=== PATIENT | male | born 2005 | race Caucasian/White ===

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

== ENCOUNTER 2025-02-12 21:17 | Emergency (ER) | payer OTHER, SELFPAY ==
--- NOTE | ~2025-02-12 | XR_ITS ---
EXAM: XR hand LT 2V DATE: 02/12/2025 21:49 HISTORY: laceration TO 2ND DIGIT . COMPARISON: 06/19/2021. FINDINGS: Normal mineralization. No fracture or dislocation. No lytic or blastic lesion. Joint space s are maintained. No erosion or periosteal change. Soft tissue irregularity/laceration of the tip of the left second digit. IMPRESSION: No acute osseous finding in the left hand. Reviewed, dictated and finalized at location K.
--- OUTSIDE RECORDS SUMMARY | 2025-02-12 21:21 | XMS_ITS | Data Portability ---
Author Organization [facility] Address [address] [place] [address] Assessment No assessment recorded. Plan of Treatment Reminders Order Date Submit Date Provider Last Modified By Organization Details Last Modified Time Details Appointments None record ed. Lab None record ed. Referral None record ed. Procedures None record ed. Surgeries None record ed. Imaging None record ed. Medication Orders None record ed. Patient TargetsNo targets recorded. Patient InstructionsNo instructions recorded. Reason for Referral None Reported. Problems No Known Problems Medical Equipment None Reported. Allergies No known drug allergies Medications Name Sig Start Date Stop Date Status Note LastModified by Organization Details LastModified Time methylpheni date 10 mg tablet TAKE 1 TABLET BY MOUTH EVERY MORNING active Not Available Not Available No t Available methylpheni date ER 54 mg tablet,exte nded release 24 hr TAKE 1 TABLET BY MOUTH EVERY MORNING active Not Available Not Available No t Available cephalexin 500 mg capsule 04/11 completed Not Available Not Available Not Available methylpredn isolone 4 mg tablets in a dose pack TAKE 6 TABLETS ON DAY 1 DIRECTED ON PACKAGE AND DECREASE BY 1 TAB EACH DAY FOR A TOTAL OF 6 DAYS 12/13 completed Not Available Not Available Not Available Vitals Date Recorded Body weight Body mass index (BMI) Body height Oxygen saturation Oxygen saturation in Arterial blood by Pulse oximetry Heart rate Systolic blood pressure Diastolic blood pressure Provider Name and Address Organization Details Last Updated DateTime 8 35745.9 4 g 20 kg/m2 160.02 cm 98 % 98 % 90 /min 110 mm[Hg] 64 mm[Hg] Claire Kidd CMA [facility] 8 12:31:56 Date Recorded Body weight Body mass index (BMI) Body height Heart rate Oxygen saturation Oxygen saturation in Arterial blood by Pulse oximetry Systolic blood pressure Diastolic blood pressure Provider Name and Address Organization Details Last Updated DateTime 8 00292.9 8 g 19.1 kg/m2 160.02 cm 101 /min 99 % 99 % 104 mm[Hg] 70 mm[Hg] Arely Duque LPN [facility] 8 16:02:07 Date Recorded Body height Body mass index (BMI) Body weight Heart rate Oxygen saturation Oxygen saturation in Arterial blood by Pulse oximetry Systolic blood pressure Diastolic blood pressure Provider Name and Address Organization Details Last Updated DateTime 8 162.56 cm 18.8 kg/m2 76872.7 2 g 86 /min 98 % 98 % 112 mm[Hg] 70 mm[Hg] Arely Duque LPN [facility] 8 15:34:43 Date Recorded Body height Body mass index (BMI) Body weight Heart rate Oxygen saturation Oxygen saturation in Arterial blood by Pulse oximetry Systolic blood pressure Diastolic blood pressure Provider Name and Address Organization Details Last Updated DateTime 8 162.56 cm 19.9 kg/m2 07611.7 1 g 85 /min 99 % 99 % 110 mm[Hg] 70 mm[Hg] Arely Duque LPN [facility] 8 10:03:40 Social History Question Answer Notes LastModified by Organizat ion Details LastModified Time Tobacco Smoking Status Never Smoker Claire coley [facility] 12/13/2017 12:28:33 What Is Your Level Of Caffeine Consumption? Moderate [email or web address] Information not available 12/13/2017 What Type Of Diet Are You Following? REGULAR [email or web address] Information not available 12/13/2017 What Was The Date Of Your Most Recent Tobacco Screening? 04/11/2018 Information n ot available 04/28/2019 Sex: Unknown Functional Status None recorded. Mental Status None recorded. Family History Nothing Reported. Medical History Condition Response HAVE YOU BEEN HOSPITALIZED OR SEEN IN [facility] IN THE PAST YEAR ? Y Immunizations Vaccine Type Date Status Note Provider [facility] e and Address Organization Details Recorded Time influenza, unspecified formulation 07/26/2017 completed Clarie coley [facility] 12/13/2017 12:28:10 Past Encounters Encounter ID Performer Location Encounter Start Date Encounter Closed Date Diagnosis/Indication Diagnosis SNOMED-CT Code Diagnosis ICD10 Code Diagnosis Note [id number] Alen Vital MD [facility] [address] [place] [address],[address] [address] 12/13/2017 12:12:55 12/13/2017 13:29:48 Injury of lower limb 546159570 S89.92XD Patient recently admitted to the hospital after an accidental left lower extremity laceration below the left knee that involve a section of the superficia l aponeurosi s of the anterior compartmen t and lateral compartmen t with involvemen t of anterior tibial and the peroneal longus muscles. Doing and surgical examinatio n time there was no evidence of anterior tibial or the peroneal bundle transectio n.The wound was washout, and it was closed over a drain. Within a couple of days the patient was discharged home when he has been doing physical therapy. He comes back to the clinic for follow-up examinatio n. He is doing really well. He is able to transfer, he has no neurologic al or vascular deficits. I will have the patient come back in a couple weeks for suture and staple removal. He has completed his antibiotic course. Continue to use the right angle boot. . [id number] Alen Vital MD [facility] [address] [place] [id number] 12/24/2017 15:35:31 12/24/2017 16:45:04 Injury of lower limb [id number] S89.92XD Status surgical repair of left leg laceration with muscle repair of the anterior tibial and long peroneal. He is doing well. I have contacted his physical therapist [facility] and instructed to increase the level of range of motion exercises and to increase the therapy sessions to twice a week. Attempt ambulation with crutches and weight bearing as tolerated. OK to remove the boot at night. Follow up in 1 month. [id number] Alen Vital MD [facility] [address] [place] [address],[address] [address] 01/26/2018 15:24:52 01/26/2018 15:58:16 Injury of lower limb [id number] S89.92XD Status surgical repair of left leg laceration with muscle repair of the anterior tibial and long peroneal. I will see him the first week in April. I have now cleared him for physical therapy at [facility] wearing the brace. I anticipate full recovery by late summer at which point it will be decided by him and his parents whether to do football or other lower impact sports during the fall season [id number] Alen Vital MD [facility] [address] [place] [address] 04/11/2018 09:56:49 04/11/2018 10:32:29 Injury of lower limb [id number] S89.92XD Status surgical repair of left leg laceration with muscle repair of the anterior tibial and long peroneal. 100 % recovery. No neuromotor deficits. patient is back at performing sports. Follow up as needed Patient is doing really well. Complete physical therapy program. Health Concerns Section Related Observation LastModified by Organization Detai ls LastModified Time None Recorded Concern Status LastModified by Organization Details LastModified Time None Recorded Advance Directives Directive None Recorded Payers Insurance Date Sequence Insurance Name Policy Number Policy Fuentes Covered Member ID Fuentes Member ID Guarantor Name 12/13/2017 1 *SELF PAY* loyd Loza 04/08/2018 1 [facility]: [employer] [id number] Scott Loza [id number] Scott Loza Notes Date Note Type Note Provider Name and Address Organization Details Recorded Time 12/13/2017 text/html Xiao is in my clinic for the 1st time after he was discharged from the hospital due to the complex laceration repair of his left lower extremity that was accidental in origin. He is seen company of his grandfather Patient is doing really well he is back in school, he is using crutches for ambulation, he is also wearing a boot to maintain that right angle position of his left ankle. He denies any numbness, tingling, rest pain, pain at night, edema of the left lower extremity. He is just A little itchy At the incision. He has been attending physical therapy twice now and he has been doing well. He denies any left foot drop. Aeln Vital MD [address] [facility] [address], [place], [address], [facility] 12/13/2017 14:49:29 12/24/2017 text/html Xiao is here following up for suture removal. He is doing well, denies any pain in the foot. No numbness or tingling. He is going to physical therapy once a week and is progressing well. Continues to wear the right angle boot to prevent foot drop. MD Crystal Hernandez [address] [facility] [address], [place], [address], [facility] 12/24/2017 17:48:26 01/26/2018 text/html Xiao is doing great. He is increasing his level of activity and tolerance. Continues to wear a brace, he is able to jump and jog, denies any foot drop. He feels like he is at 75-80 % of his capacity. He denies any numbness or tingling. No pain. He is here in company of his mother. Alen Vital MD [address] [facility] [address], [place], [address], [facility] 01/26/2018 16:53:40 04/11/2018 text/html Xiao is here fo r his final check. He is doing really well and has recovered 100 % from his left leg injury. He is very active and runs every day, in fact, he just finished playing baseball season a week ago positioned in the outfield. He denies any numbness, tingling, weakness, motor deficits. In fact he feels great. Alen Vital MD [address] [facility] [address], [place], [address], [facility] 04/11/2018 11:53:17
--- OUTSIDE RECORDS SUMMARY | 2025-02-12 21:21 | XMS_ITS | Clinical Summary ---
Author Organization [facility] Address [address] [place] [address] Care Team Providers Care Industrial Service Technician Name Role Phone Brigitte Garber MD Primary Care Provider Source Comments [employer] [facility],non-owned Affiliates and Associated Physician Practices is amultiple site organization consisting of ambulatory clinics and hospital sitesin [place], [place], [place] and [place]. This disclosure is being madepursuant to the Care Everywhere program and may not contain all information available regarding this patient. Last updated 18.Veratect Allergies No known active allergies Medications * Be aware that medications may not be up to date on this document. Alwaysverify current medications with the patient. methylphenidate CR 36 MG tablet Take 36 mg by mouth every morning Active methylphenidate ER (METADATE ER) 10 MG tabletIndicatio ns:pt takes one in am and if needed will take 1.5tabs with homework Take 10 mg by mouth every morning Reasons: pt takes one in am and if needed will take 1.5tabs with homework Active Active Problems Problem Noted Date Diagnosed Date Chest pain at rest 06/24/2015 Assessment & Plan (06/24/2015 11:03 AM CDT): IMPRESSION Xiao is a 9 year-old with: 1. Structurally normal heart by exam, ECG, and echocardiogram. 2. Chest pain likely consistent with musculoskeletal chest pain. PLAN Xiao has a structurally normal heart by exam, ECG, and echocardiogram. His chest pain is most likely consistent with musculoskeletal chest pain, given the fact that it occurs exclusively at rest and is made worse by deep inspiration. I am not sure what to make of the popping sensation that resolves the pain; this may suggest some issue with his ribs or costal cartilages, again pointing towards a musculoskeletal cause. His normal cardiac evaluation today certainly suggests against a cardiovascular etiology for the chest pain. Given the chronicity of the pain, I suggested taking ibuprofen 300 mg po q8 hours for a week (with a snack) as a scheduled course (not prn) to aggressively treat any musculoskeletal pain. I also suggested he have a fasting lipid profile obtained, which I ordered today and will follow up the results with his family. Given Xiao's normal evaluation today, I do not need to see him routinely here in cardiology clinic. Of course should any concerns on yours or the family's arise, I would be more than happy to reevaluate him. In the meantime, he has no restrictions from a cardiovascular standpoint regarding routine care or activity. SBE prophylaxis is not indicated. Chronic chest pain 05/29/2015 Assessment & Plan (05/29/2015 10:23 AM CDT): 9 year old with chest pain of several years duration, characterized as sharp and of short duration but with multiple other associated symptoms which are, frankly, difficult to sort out. Given my review of Dr. Aviles's records and Mom's description of previous medical issues, somatization seems a strong possibility. 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 He also complains of difficult exhaling and the development of hoarseness during the day. Although I think a Cardiology evaluation is warranted given the constellation of symptoms described, I suspect this will be unrevealing. I don't think this represents vocal cord dysfunction, asthma, or SONAM. I am reassured by normal exam, normal CXR and normal PFT's. Rec: Discussed my findings with Mom including the normal studies we have today along with features of precordial catch syndrome, the benign nature of this, and the likelihood he will outgrow these symptoms. Cardiology consultation Would consider airway evaluation by bronchoscopy for the description of hoarseness, exhalation difficulties, etc, though I suspect this is of low yield Family History Medical History Relation Name Comments Allergies Neg Hx Asthma Neg Hx Cystic Fibrosis Neg Hx Eczema Neg Hx Social History Tobacco Use Types Packs/Day Years Used Date Smoking Tobacco: Never Alcohol Use Standard Drinks/Week Comments Not Asked 0 (1 standard drink = 0.6 oz pur e alcohol) Sex and Gender Information Value Date Recorded Sex Assigned at Not on file Legal Sex Male 11:49 AM CDT Gender Identity Not on file Sexual Orientation Not on file Last Filed Vital Signs Vital Sign Reading Time Taken Comments Blood Pressure 110/76 06/24/2015 9:37 AM CDT Pulse 84 06/24/2015 9:37 AM CDT Temperature - - Respiratory Rate 20 06/24/2015 9:37 AM CDT Oxygen Saturation 100% 05/29/2015 9:27 AM CDT Inhaled Oxygen Concentration - - Weight 35.8 kg (78 lb 14.8 oz) 06/24/2015 9:37 A M CDT Height 146 cm (4' 9.48 ) 06/24/2015 9:37 AM CDT Body Mass Index 16.8 06/24/2015 9:37 AM CDT Plan of Treatment Health Maintenance Due Date Last Done Comments HIV SCREENING 2019 HPV VACCINE (1 - Male 3-dose series) 2019 MENINGOCOCCAL (Group B) VACC INE SHARED DECISION-MAKING (1 of 2 - Standard) 2020 HEPATITIS C SCREENING 08/06/2022 DTAP/TDAP/TD VACCINES (1 - Tdap) 2023 HEPATITIS B VACCINE (1 of 3 - 19+ 3-dose series) 2023 COVID-19 VACCINE (1 - 2023-2 5 season) 2024 DEPRESSION SCREENING 10/04/2024 INFLUENZA VACCINE (Season Ended) 2025 ZOSTER VACCINE (1 of 2) 2054 HIB VACCINE Aged Out No longer eligi ble based on patient's age to complete this topic MENINGOCOCCAL GROUPS A/C/Y/W VACCINE Aged Out No longer eligible b ased on patient's age to complete this topic PNEUMOCOCCAL VACCINE Aged Out No long er eligible based on patient's age to complete this topic Insurance ANTHEM Care Teams Industrial Service Technician Relationship Specialty Start Date End Date Brigitte Garber MD [address] [place] [id number] PCP - General Pediatrics 05/29/15
--- OUTSIDE RECORDS SUMMARY | 2025-02-12 21:21 | XMS_ITS | Clinical Summary ---
Author Organization [facility] Address [address] [place] [address] Care Team Providers Care Admissions Manager Rn Name Role Phone Brigitte Bird MD Primary Care Provider Allergies No known active allergies Social History Tobacco Use Types Packs/Day Years Used Date Smoking Tobacco: Never Smokeless Tobacco: Never Sex and Gender Information Value Date Recorded Sex Assigned at Not on file Legal Sex Male 6:17 PM CDT Gender Identity Not on file Sexual Orientation Not on file Last Filed Vital Signs Vital Sign Reading Time Taken Comments Blood Pressure 121/64 12/02/2021 4:15 PM DELI ASSOCIATE Pulse 76 12/02/2021 4:15 PM DELI ASSOCIATE Temperature 36.8 C (98.3 F) 12/02/2021 4:15 PM DELI ASSOCIATE Respiratory Rate 18 12/02/2021 4:15 PM DELI ASSOCIATE Oxygen Saturation 100% 12/02/2021 4:15 PM DELI ASSOCIATE Inhaled Oxygen Concentration - - Weight 70.3 kg (155 lb) 12/02/2021 4:15 PM DELI ASSOCIATE Height 182.9 cm (6') 12/02/2021 4:15 PM DELI ASSOCIATE Body Mass Index 21.02 12/02/2021 4:15 PM DELI ASSOCIATE Plan of Treatment Health Maintenance Due Date Last Done Comments Annual Physical 2007 Meningococcal B Vaccine (1 o f 2 - Standard) 2020 Hepatitis C 2022 Hepatitis B Vaccines (1 of 3 - 19+ 3-dose series) 2023 COVID-19 Vaccine (2023-2 5 season) 2024 10/19/2021, 04/30/2021, 04/07/2021 DTaP, Tdap and Td Vaccines ( 2 - Td or Tdap) 04/29/2026 04/29/2016 HPV Vaccines Completed 11/04/2016, 07/01/2016, 04/29/2016 Meningococcal Vaccine Completed 11/20/2020 , 04/29/2016 Pneumococcal Vaccine: Pediatrics (0 to 5 Years) and At-Risk Patients (6 to 49 Years) Aged Out No longer eligible b ased on patient's age to complete this topic RSV Immunizations Under 20 Months Aged Out No longer eligible b ased on patient's age to complete this topic Insurance [facility] Care Teams Admissions Manager Rn Relationship Specialty Start Date End Date Brigitte Bird MD [address] [place] [address] PCP - General PEDIATRICS 12/02/21
--- OUTSIDE RECORDS SUMMARY | 2025-02-12 21:21 | XMS_ITS | Continuity of Care Document ---
Author Name [facility] Organization [facility] Care Team Providers Care Venue Manager Name Role Phone DOD-ND Unavailable Unavailable Problems Combined list of problems from Department of Defense and Veterans Affairs facilities. It does not include entries that were removed or entered in error. Problem Status Onset Date Problem Type Date of Resolution Comments Source visit for: well child visit Inactive 6 Condition DoD COMMON COLD Inactive 6 Condition REASSURANCE RE: NL EAR EXAM TODAYSYMPTOMATIC CARE FOR URI DoD NORMAL ROUTINE HISTORY AND PHYSICAL WELL-BABY ( - 2 Yr) Inactive 6 Condition DoD UPPER RESPIRATORY INFECTION Inactive 6 Condition No s/sx consistent with RSV bronchioliolitis at this time. Mother informed of common symptoms with RSV and handout given for education. F/u if cough persists or worsens over next week, or sooner if concern. DoD OTITIS MEDIA Inactive 6 Condition DoD Preventive Medicine Established Patient Checkup Child 1-4 Inactive 5 Condition MMR, VARIVAX, PEDVAX DoD Preventive Medicine Estab. Patient Checkup Under 1 Yr Inactive 5 Condition PREVNARMAY TRY THIN APPLICATION OF VASELINE TO LOWER LIDS, AVOIDING EYES DoD DIAPER RASH Inactive 5 Condition KEEP AREA CLEAN AND DRYOTC BARRIER CREAM PRN DoD ALLERGIC RHINITIS Active Condition DoD Allergies, Adverse Reactions, Alerts Combined list of allergies from Department of Defense and Veterans Affairs facilities. It does not include entries that were removed or entered in error. Substance Category Reaction Severity Reaction type Status Date Reported Comments Source No Known Allergies Drug allergy (disorder) active 07/22/2006 [facility] Immunizations Combined list of available immunizations from the Department of Defense and Veterans Affairs facilities. Immunization Series Date Given Administered By Site Reaction Lot Number CVX Code Drug Manager Organizational Status Comments Source influenza virus vaccine,split 2005 zzLef t Arm [id number] 15 sanofi pasteur complet ed influenza virus vaccine,s plit 09/30/06 Given Ambulat ory Pharmac y influenza virus vaccine,split 2005 [id number] 15 sanofi pasteur complet ed influenza virus vaccine,s plit 09/30/06 Given Ambulat ory Pharmac y influenza virus vaccine, split virus (incl. purified surface antigen)-reti red CODE 1 2005 Unknown, Provider [id number] 15 Sanofi Pasteur ([facility]) complet ed influenza virus vaccine, split virus (incl. purified surface antigen)- retired CODE DoD influenza virus vaccine,split 2005 [facility] Thigh [id number] 15 sanofi pasteur complet ed influenza virus vaccine,s plit 11/25/05 Given Ambulat ory Pharmac y [id number] 20 GlaxoSmithKli ne complet ed DTaP 11/25/05 Given Ambulat ory Pharmac y DTaP 2005 [id number] 20 GlaxoSmithKli ne complet ed DTaP 11/25/05 Given Ambulat ory Pharmac y influenza virus vaccine,split 2005 [id number] 15 sanofi pasteur complet ed influenza virus vaccine,s plit 11/25/05 Given Ambulat ory Pharmac y influenza virus vaccine, split virus (incl. purified surface antigen)-reti red CODE 1 2005 Unknown, Provider [id number] 15 Sanofi Pasteur ([facility]) complet ed influenza virus vaccine, split virus (incl. purified surface antigen)- retired CODE [facility] diphtheria, tetanus toxoids and acellular pertu is vaccine 4 2005 Unknown, Provider [id number] [facility] diphtheri a, tetanus toxoids and acellular pertussis vaccine DoD haemophilus b conj (PRP-OMP) vaccine 2004 [facility] Thigh [id number] 49 [employer] complet ed haemophil us b conj (PRP-OMP) vaccine 08/11/05 Given Ambulat ory Pharmac y measles/mumps /rubella virus vaccine 2004 [facility] Thigh [id number] 03 [employer] complet ed measles/m umps/rube lla virus vaccine 08/11/05 Given Ambulat ory Pharmac y varicella virus vaccine 2004 [facility] Thigh [id number] 21 [employer] complet ed varicella virus vaccine 08/11/05 Given Ambulat ory Pharmac y measles/mumps /rubella virus vaccine 2004 [id number] 03 [employer] complet ed measles/m umps/rube lla virus vaccine 08/11/05 Given Ambulat ory Pharmac y varicella virus vaccine 2004 [id number] 21 [employer] complet ed varicella virus vaccine 08/11/05 Given Ambulat ory Pharmac y haemophilus b conj (PRP-OMP) vaccine 2004 [id number] 49 [employer] complet ed haemophil us b conj (PRP-OMP) vaccine 08/11/05 Given Ambulat ory Pharmac y measles, mumps and rubella virus vaccine 1 2004 Unknown, Provider [id number] 03 Merck (MSD) complet ed measles, mumps and rubella virus vaccine DoD varicella virus vaccine 1 2004 Unknown, Provider [id number] 21 Merck (MSD) complet ed varicella virus vaccine DoD Haemophilus influenzae type b vaccine, PRP-OMP conjugate 3 2004 Unknown, Provider [id number] 49 Merck (MSD) complet ed Haemophil us influenza e type b vaccine, PRP-OMP conjugate DoD pneumococcal 7-valent vaccine 2004 zzRig Thigh [id number] 100 [employer] complet ed pneumococ koffi 7-valent vaccine 05/14/05 Given Ambulat ory Pharmac y pneumococcal 7-valent vaccine 2004 [id number] 100 [employer] complet ed pneumococ koffi 7-valent vaccine 05/14/05 Given Ambulat ory Pharmac y pneumococcal conjugate vaccine, 7 valent 3 2004 Unknown, Provider [id number] 100 [facility] ed pneumococ koffi conjugate vaccine, 7 valent DoD DTaP-hepatiti s B and poliovirus vaccine 2004 zzLef t Thigh [id number] 110 GlaxoSmithKli ok complet ed DTaP-hepa titis B and polioviru s vaccine 02/20/05 Given Ambulat ory Pharmac y pneumococcal 7-valent vaccine 2004 zzRig ht Thigh [id number] 100 [employer] complet ed pneumococ koffi 7-valent vaccine 02/20/05 Given Ambulat ory Pharmac y pneumococcal 7-valent vaccine 2004 [id number] 100 [employer] complet ed pneumococ koffi 7-valent vaccine 02/20/05 Given Ambulat ory Pharmac y DTaP-hepatiti s B and poliovirus vaccine 2004 [id number] 110 GlaxoSmithKli ne complet ed DTaP-hepa titis B and polioviru s vaccine 02/20/05 Given Ambulat ory Pharmac y DTaP-hepatiti s B and poliovirus vaccine 2004 [id number] 8AA 110 GlaxoSmithK[employer] ne complet ed DTaP-hepa titis B and polioviru s vaccine 02/20/05 Given Ambulat ory Pharmac y DTaP-hepatiti s B and poliovirus vaccine 2004 [id number] 8AA 110 GlaxoSmithKli ne complet ed DTaP-hepa titis B and polioviru s vaccine 02/20/05 Given Ambulat ory Pharmac y pneumococcal conjugate vaccine, 7 valent 2 2004 Unknown, Provider [id number] 100 [facility] complet ed pneumococ koffi conjugate vaccine, 7 valent DoD DTaP-hepatiti s B and poliovirus vaccine 3 2004 Unknown, Provider [id number] 110 [place] ([place]) complet ed DTaP-hepa titis B and polioviru s vaccine DoD haemophilus b conj (PRP-OMP) vaccine 2004 Sarah Beth ht Thigh [id number] 49 Mer[employer] Inc complet ed haemophil us b conj (PRP-OMP) vaccine 04 Given Ambulat ory Pharmac y DTaP-hepatiti s B and poliovirus vaccine 2004 zzLef t Thigh [id number] 7AA 110 GlaxoSmithKli ne complet ed DTaP-hepa titis B and polioviru s vaccine 04 Given Ambulat ory Pharmac y pneumococcal 7-valent vaccine 2004 Sarah Beth ht Thigh [id number] 100 [facility] complet ed pneumococ koffi 7-valent vaccine 04 Given Ambulat ory Pharmac y haemophilus b conj (PRP-OMP) vaccine 2004 [id number] 49 [employer] complet ed haemophil us b conj (PRP-OMP) vaccine 04 Given Ambulat ory Pharmac y DTaP-hepatiti s B and poliovirus vaccine 2004 [id number] 7AA 110 GlaxoSmithKli ne complet ed DTaP-hepa titis B and polioviru s vaccine 04 Given Ambulat ory Pharmac y DTaP-hepatiti s B and poliovirus vaccine 2004 [id number] 7AA 110 GlaxoSmithKli ne complet ed DTaP-hepa titis B and polioviru s vaccine 04 Given Ambulat ory Pharmac y Haemophilus influenzae type b vaccine, PRP-OMP conjugate 2 2004 Unknown, Provider [id number] 49 Merck (MSD) complet ed Haemophil us influenza e type b vaccine, PRP-OMP conjugate DoD pneumococcal conjugate vaccine, 7 valent 1 2004 Unknown, Provider [id number] 100 Melissa (DEL) complet ed pneumococ koffi conjugate vaccine, 7 valent DoD DTaP-hepatiti s B and poliovirus vaccine 2 2004 Unknown, Provider [id number] 110 [employer] (SKB) complet ed DTaP-hepa titis B and polioviru s vaccine DoD DTaP-hepatiti s B and poliovirus vaccine 2004 zzLef t Thigh [id number] 4AA 110 GlaxoSmithKli ne complet ed DTaP-hepa titis B and polioviru s vaccine 04 Given Ambulat ory Pharmac y haemophilus b conj (PRP-OMP) vaccine 2004 zzRig ht Thigh [id number] 49 [employer] Inc complet ed haemophil us b conj (PRP-OMP) vaccine 04 Given Ambulat ory Pharmac y DTaP-hepatiti s B and poliovirus vaccine 2004 [id number] 4AA 110 GlaxoSmithKli ne complet ed DTaP-hepa titis B and polioviru s vaccine 04 Given Ambulat ory Pharmac y DTaP-hepatiti s B and poliovirus vaccine 2004 [id number] 4AA 110 GlaxoSmithKli ne complet ed DTaP-hepa titis B and polioviru s vaccine 04 Given Ambulat ory Pharmac y Haemophilus influenzae type b vaccine, PRP-OMP conjugate 1 2004 Unknown, Provider [id number] 49 Merck (MSD) complet ed Haemophil us influenza e type b vaccine, PRP-OMP conjugate DoD DTaP-hepatiti s B and poliovirus vaccine 1 2004 Unknown, Provider [id number] Shani SmithKlcarson (SKB) complet ed DTaP-hepa titis B and polioviru s vaccine DoD Encounters Combined list of: 1) Encounters from Department of Veterans Affairs facilities going backup to the last 18 months, not all VA inpatient encounters are included; 2) Encounters from the Department of Defense facilities going backup to 280 months. Location Location Details Encounter Type Encounter Number Reason For Visit Attending Provider ADM Date DC Date Status Disposition Source [facility]) OUTPATIENT [id number] WELL CHILD CHECK PUNEET MCKINNEY Jacklyn 02/20 Released w/o Limitations [facility]) [facility]) OUTPATIENT [id number] 9 MONTH WELL PUNEET MCKINNEY R 05/14 Released w/o Limitations [facility] OUTPATIENT [id number] ears botheri ng him x2 days FRANKIE MARTINEZ I 07/12 Released w/o Limitations [facility]) [facility]) OUTPATIENT [id number] 1YEAR WELL PUNEET MCKINNEY Jacklyn 08/11 Released w/o Limitations [facility]) [facility] OUTPATIENT [id number] COUGHTAMEKA WISEMAN 10/12 Released w/o Limitations [facility]) [facility] OUTPATIENT [id number] 15 MONTH WELL BABY CHECK GILBERTO CHOE 11/25 Released w/o Limitations [facility](P ed[facility]) [facility]) OUTPATIENT [id number] EAR ACHE, PULLING ON EAR, LOW FEVER X 1 WEEK PUNEET MCKINNEY R 07/22 Released w/o Limitations [facility](F amily Practic e) [facility]) OUTPATIENT [id number] 2YR WELL STU MCCORMICK 08/10 Released w/o Limitations [facility](P ediatri cs) [employer] [facility] [place]) TELE CONSULT [id number] 2 Notes Entered by: KRISTIN LOMAX 30 Jul 2021 1253 ------- ------- ------- ------- -- ER F/U - Jd - - (FOP-Th omas) - - corinna SIEGELRobby NAOMI 07/30 Other Not Elsewhere Classified [address] [place] [address])([facility] cott [facility] [place]) [address] [place] [address] [place] TELE CONSULT [id number] Notes Entered by: KRISTIN LOMAX 02 Jun 2022 0941 ------- ------- ------- ------- -- Referra l req - appt decline d - Vera - ([facility]) - NAOMI Zavala 06/02 Referred for Appointment [address] [place] [address] Efra [facility])([facility] [place]) [address] [place] [address] [place] OUTPATIENT [id number] 3 VIRTUAL -DISCUS S REFERRA LS/NEW TO CLINIC/ SEP APPT [phone] (FOP-Th omas) CHANG YEH 06/10 Released w/o Limitations [address] [place] [address] [facility])(S cott [facility] [place]) [address] [place] [address])(Uti lization Managemen t) TELE CONSULT [id number] Notes Entered by: VISHAL TORRES 17 Jun 2022 1109 ------- ------- ------- ------- -- Referra l request for non-net work psychia trist for continu ity of care VISHAL TORRES 06/17 Other Not Elsewhere Classified [address] [place] [address] Efra [facility])(U tilizat ion Managem ent) [address] [place] [address])(Alo tt [facility] [place]) TELE CONSULT [id number] 1 Notes Entered by: TORI WILLIAMSON 06 Nov 2022 0938 ------- ------- ------- ------- -- Network results Psychol ogy/Psy chiatry 022 LSJ JULIANO, NHIEN CAMILLA 11/[address] [place] [address])([facility] [place]) [address] [place] [address])([facility]o [facility] [place]) TELE CONSULT [id number] 3 Notes Entered by: LOLITA TRAN 11 Nov 2022 1351 ------- ------- ------- ------- -- ALIVIA HILLS L REQUEST DENNIS FRANZ 11/11 Released to Self Care [address] [place] [address])([facility] [place]) [address] [place] [address])(Alo tt [facility] [place]) TELE CONSULT [id number] 6 Notes Entered by: Judah RUSSO 18 Nov 2022 0812 ------- ------- ------- ------- -- Network results Mental Health/ Psych 022, 022 KJD JULIANO, NHIEN CAMILLA 11/[address] [place] [address])(S [facility] Peds Team [place]) [address] [place] [address])([facility] [place] [place]) TELE CONSULT [id number] Notes Entered by: KARLO HERRERA 18 Nov 2022 1043 ------- ------- ------- ------- -- Retro Psychia try Bob Kumar / [place] / GRIS CHHAYA HUA 11/18 Other Not Elsewhere Classified [address] [place] [address])(S cott [facility] Fam Res [facility] [place]) [address] [place] [address] [facility]fra [facility] [place] [facility] [place]) TELE CONSULT [id number] 3 Notes Entered by: KARLO HERRERA 01 Jan 2023 0850 ------- ------- ------- ------- -- STAT Urology Referra l 01 January / [place] / POC CHHAYA HUA 01/01 Released to Self Care [address] [place] [address] [facility]fra [facility] [employer] [facility] [place] [address] [place] [address] [facility]fra [facility] [employer] [facility] [place]) TELE CONSULT [id number] 2 Notes Entered by: Judah RUSSO 03 Mar 2023 1222 ------- ------- ------- ------- -- Network results Urology 023 HAMMAD LYONS 03/[address] [place] [address] [facility]fra [facility] [place] [facility] [employer] [facility] [place]) Procedures Combined list of: 1) Procedures from Department of Veterans Affairs facilities going back up to thelast 18 months, not all VA non-surgical procedures are included; 2) All procedures from the Department of Defense facilities. Procedure Procedure Type Code Date Perfomer Comments Sourc e No data available for this section Ambulato ry Pharmacy Immunization Admin Under Age 8, Each Additional Vaccine Immunization Admin Under Age 8, Each Additional Vaccine [id number] 08/11/20 05 PUNEET MCKINNEY Immunization Administration Under Age 8, One Vaccine Immunization Administration Under Age 8, One Vaccine 48823 08/11/20 05 PUNEET MCKINNEY Immunization Administration Under Age 8, One Vaccine Immunization Administration Under Age 8, One Vaccine 89837 05/14/20 05 PUNEET MCKINNEY Immunization Administration Under Age 8, One Vaccine Immunization Administration Under Age 8, One Vaccine 29372 02/21/20 PUNEET MCKINNEY Immunization Admin Under Age 8, Each Additional Vaccine Immunization Admin Under Age 8, Each Additional Vaccine 48919 02/21/20 05 PUNEET MCKINNEY Non-Physician Phone Call To Pt/Provider Intermed (11-20 min) Non-Physician Phone Call To Pt/Provider Intermed (11-20 min) [id number] [facility] Case Management, each 15 minutes CUAUHTEMOC ROQUE DoD CASE MANAGEMENT, EACH 15 MINUTES 06/10/[address] [facility] TELE ASSESS & MGT SRV PROV QUAL NONPHYS HLTH CARE PRO TO EST PAT,PARENT,GUARD NOT ORIG REL ASSESS & MGT SRV PROV W/IN PREV 7 DAYS NOR LEAD ASSESS & MGT SRV/PX W/IN NXT 24H/SOON APT; 11-20 MIN MED DIS 07/30/20 21 DoD IMMUNIZ ADMIN YOUNGER 8 YRS, AGE (INCL PERCUTANEOUS, I/D, SUBCUTANEOUS,/IM INJECTS) WHEN THE PHYS COUNSELS THE PT/FAMILY; EA ADDITION INJECT (1/COMBO VACC/TOXOID),/DAY (LST SEP ADDITION CD, 1 PROC) 08/11/[address] [facility] IMMUNIZATION ADMINISTRATION YOUNGER 8 YEARS, AGE (INCL PERCUTANEOUS, I/D, SUBCUTANEOUS,/INTR AMUSCULAR INJECTS) WHEN THE PHYSICIAN COUNSELS THE PATIENT/; 1ST INJECT (1/COMBO VACCINE/TOXOID),/D AY 05/14/20 05 DoD IMMUNIZ ADMIN YOUNGER 8 YRS, AGE (INCL PERCUTANEOUS, I/D, SUBCUTANEOUS,/IM INJECTS) WHEN THE PHYS COUNSELS THE PT/FAMILY; EA ADDITION INJECT (1/COMBO VACC/TOXOID),/DAY (LST SEP ADDITION CD, 1 PROC) 02/21/[address] [facility] Social History Combined list of available smoking, tobacco, and other social history from Department of Defense and Veterans Affairs facilities. Social History Type Response Date Comment Sour e This section is an empty social history section. DoD Assessment and Plan Combined list of future care activities from Department of Defense and Veterans Affairs facilities (e.g., assessment and plan notes, appointments, orders, and referrals). Additional future care activities may be listed in the Plan of Care section. Result Assessment and Plan Date Source Assessment and Plan No data available for this section 02/13/2025 Ambulatory Pharmacy Functional Status Combined list of recent functional and cognitive assessments recorded at Department of Defense and Veterans Affairs (VA).VA Functional [place] Measurement (FIM) Scale: 1 = Total Assistance (Subject = 0% +), 2 = Maximal Assistance (Subject = 25% +), 3 = Moderate Assistance (Subject = 50% +), 4 = Minimal Assistance (Subject = 75% +), 5 = Supervision, 6 = Modified [place] (Device), 7 = Complete [place] (Timely, Safely). Assessment Date/Time Source Assessment Type Assessment Skill Assessment Score Assessment Details No data available for this section
[2025-02-12 21:25] VITALS: BP 134/91; PULSE 97; RESP 18; TEMP 37.3; O2SAT 97
--- OUTSIDE RECORDS SUMMARY | 2025-02-12 21:42 | XMS_ITS | Clinical Summary ---
Author Organization [facility] Address [address] [place] [address] Care Team Providers Care Coyote Hunter Name Role Phone Brigitte Bird MD Primary [...] Comments Blood Pressure 121/64 12/02/2021 4:15 PM CHEMICAL MACHINE TENDER Pulse 76 12/02/2021 4:15 PM CHEMICAL MACHINE TENDER Temperature 36.8 C (98.3 F) 12/02/2021 4:15 PM CHEMICAL MACHINE TENDER Respiratory Rate 18 12/02/2021 4:15 PM CHEMICAL MACHINE TENDER Oxygen Saturation 100% 12/02/2021 4:15 PM CHEMICAL MACHINE TENDER Inhaled Oxygen Concentration - - Weight 70.3 kg (155 lb) 12/02/2021 4:15 PM CHEMICAL MACHINE TENDER Height 182.9 cm (6') 12/02/2021 4:15 PM CHEMICAL MACHINE TENDER Body Mass Index 21.02 12/02/2021 4:15 PM CHEMICAL MACHINE TENDER Plan of Treatment Health Maintenance Due Date [...] patient's age to complete this topic Insurance [facility] Care Teams Coyote Hunter Relationship Specialty Start Date End Date Brigitte Bird MD [address] [place] [address] PCP - General PEDIATRICS 12/02/21
--- OUTSIDE RECORDS SUMMARY | 2025-02-12 21:42 | XMS_ITS | Clinical Summary ---
Author Organization [facility] Address [address] [place] [address] Care Team Providers Care Live In Caregiver Name Role Phone Brigitte Garber MD Primary Care Provider Source Comments [employer] [facility],non-owned Affiliates and Associated Physician Practices is amultiple site organization consisting of ambulatory clinics and hospital sitesin [place], [place], [place] and [place]. This disclosure is being madepursuant to the Care Everywhere program and may not contain all information available regarding this patient. Last updated 18.Outfittery Allergies No known active allergies Medications * [...] complete this topic Insurance ANTHEM Care Teams Live In Caregiver Relationship Specialty Start Date End Date Brigitte Garber MD [address] [place] [id number] PCP - General Pediatrics 05/29/15
--- OUTSIDE RECORDS SUMMARY | 2025-02-12 21:42 | XMS_ITS | Continuity of Care Document ---
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 purified surface antigen)-reti red CODE 1 2005 Unknown, Provider [id number] 15 Sanofi Pasteur ([facility]) complet ed influenza virus vaccine, split virus (incl. purified surface antigen)- retired CODE DoD influenza virus vaccine,split 2005 [facility] Thigh [id number] 15 sanofi pasteur complet ed influenza virus vaccine,s plit 11/25/05 Given Ambulat ory Pharmac y [id number] 20 GlaxoSmithKli ne complet ed DTaP 11/25/05 Given Ambulat ory Pharmac y DTaP 2005 [id number] 20 GlaxoSmithKli ne complet ed DTaP 11/25/05 Given Ambulat ory Pharmac y influenza virus vaccine,split 2005 [id number] 15 sanofi pasteur complet ed influenza virus vaccine,s plit 11/25/05 Given Ambulat ory Pharmac y influenza virus vaccine, split virus (incl. purified surface antigen)-reti red CODE 1 2005 Unknown, Provider [id number] 15 Sanofi Pasteur ([facility]) complet ed influenza virus vaccine, split virus (incl. purified surface antigen)- retired CODE [facility] diphtheria, tetanus toxoids and acellular pertu is vaccine 4 2005 Unknown, Provider [id number] 20 [facility] ([facility]) complet ed diphtheri a, tetanus toxoids and acellular pertussis vaccine DoD haemophilus b conj (PRP-OMP) vaccine 2004 [facility] Thigh [id number] 49 [employer] complet ed haemophil us b conj (PRP-OMP) vaccine 08/11/05 Given Ambulat ory Pharmac y measles/mumps /rubella virus vaccine 2004 [facility] Thigh [id number] 03 [employer] complet ed measles/m umps/rube lla virus vaccine 08/11/05 Given Ambulat ory Pharmac y varicella virus vaccine [address] [facility] Thigh [id number] 21 [employer] [...] DoD pneumococcal 7-valent vaccine 2004 zzRig Thigh [id number] 100 [employer] complet ed pneumococ koffi 7-valent vaccine 05/14/05 Given Ambulat ory Pharmac y pneumococcal 7-valent vaccine 2004 [id number] 100 [employer] complet ed pneumococ koffi 7-valent vaccine 05/14/05 Given Ambulat ory Pharmac y pneumococcal conjugate vaccine, 7 valent 3 2004 Unknown, Provider [id number] [facility] pneumococ koffi conjugate vaccine, 7 valent DoD DTaP-hepatiti s B and poliovirus vaccine 2004 zzLef t Thigh [id number] 110 GlaxoSmithKli dc complet ed DTaP-hepa titis B and polioviru s vaccine 02/20/05 Given Ambulat ory Pharmac y pneumococcal 7-valent vaccine 2004 zzRig ht Thigh [id number] 100 [employer] complet ed pneumococ koffi 7-valent vaccine 02/20/05 Given Ambulat ory Pharmac y pneumococcal 7-valent vaccine 2004 [id number] 100 [employer] complet ed pneumococ koffi 7-valent vaccine 02/20/05 Given Ambulat ory Pharmac y DTaP-hepatiti s B and poliovirus vaccine 2004 [id number] 110 GlaxoSmithKli ne complet ed DTaP-hepa titis B and polioviru s vaccine 02/20/05 Given Ambulat ory Pharmac y DTaP-hepatiti s B and poliovirus vaccine 2004 [id number] 8AA 110 GlaxoSmithKli ne complet ed DTaP-hepa titis B and polioviru s vaccine 02/20/05 Given Ambulat ory Pharmac y DTaP-hepatiti s B and poliovirus vaccine 2004 [id number] 110 GlaxoSmithKli ne complet ed DTaP-hepa titis B and polioviru s vaccine 02/20/05 Given Ambulat ory Pharmac y pneumococcal conjugate vaccine, 7 valent 2 2004 Unknown, Provider [id number] 100 [facility] ([facility] complet ed pneumococ koffi conjugate vaccine, 7 valent DoD DTaP-hepatiti s B and poliovirus vaccine 3 2004 Unknown, Provider [id number] 110 [employer] (SKB) complet ed DTaP-hepa titis B and polioviru s vaccine DoD haemophilus b conj (PRP-OMP) vaccine 2004 Sarah Beth ht Thigh [id number] 49 [employer] Inc complet ed haemophil us b conj (PRP-OMP) vaccine 04 Given Ambulat ory Pharmac y DTaP-hepatiti s B and poliovirus vaccine 2004 zzLef t Thigh [id number] 7AA 110 GlaxoSmithKli ne complet ed DTaP-hepa titis B and polioviru s vaccine 04 Given Ambulat ory Pharmac y pneumococcal 7-valent vaccine 2004 Sarah Beth ht Thigh [id number] 100 [facility] complet ed pneumococ koffi 7-valent vaccine 04 Given Ambulat ory Pharmac y haemophilus b conj (PRP-OMP) vaccine 2004 [id number] 49 [employer] complet ed haemophil us b conj (PRP-OMP) vaccine 04 Given Ambulat ory Pharmac y DTaP-hepatiti s B and poliovirus vaccine 2004 [id number] 7AA 110 GlaxoSmithKli ne complet ed DTaP-hepa titis B and polioviru s vaccine 04 Given Ambulat ory Pharmac y DTaP-hepatiti s B and poliovirus vaccine 2004 [id number] 7AA 110 GlaxoSmithKli ne complet ed DTaP-hepa titis B and polioviru s vaccine 04 Given Ambulat ory Pharmac y Haemophilus influenzae type b vaccine, PRP-OMP conjugate 2 2004 Unknown, Provider [id number] 49 Merck (MSD) complet ed Haemophil us influenza e type b vaccine, PRP-OMP conjugate DoD pneumococcal conjugate vaccine, 7 valent 1 2004 Unknown, Provider [id number] 100 Melissa (DEL) complet ed pneumococ koffi conjugate vaccine, 7 valent DoD DTaP-hepatiti s B and poliovirus vaccine 2 2004 Unknown, Provider [id number] 110 [employer] (SKB) complet ed DTaP-hepa titis B and polioviru s vaccine DoD DTaP-hepatiti s B and poliovirus vaccine 2004 zzLef t Thigh [id number] 4AA 110 GlaxoSmithKli ne complet ed DTaP-hepa titis B and polioviru s vaccine 04 Given Ambulat ory Pharmac y haemophilus b conj (PRP-OMP) vaccine 2004 zzRig ht Thigh [id number] 49 [employer] complet ed haemophil us b conj (PRP-OMP) vaccine 04 Given Ambulat ory Pharmac y DTaP-hepatiti s B and poliovirus vaccine 2004 [id number] 4AA 110 GlaxoSmithKli ne complet ed DTaP-hepa titis B and polioviru s vaccine 04 Given Ambulat ory Pharmac y DTaP-hepatiti s B and poliovirus vaccine 2004 [id number] 4AA 110 GlaxoSmithKli ne complet ed DTaP-hepa titis B and polioviru s vaccine 04 Given Ambulat ory Pharmac y Haemophilus influenzae type b vaccine, PRP-OMP conjugate 1 2004 Unknown, Provider [id number] 49 Merck (MSD) complet ed Haemophil us influenza e type b vaccine, PRP-OMP conjugate DoD DTaP-hepatiti s B and poliovirus vaccine 1 2004 Unknown, Provider [id number] Shani SmithKlcarson (SKB) complet ed DTaP-hepa [...] Disposition Source [employer](Ped iatrics) OUTPATIENT [id number] WELL CHILD CHECK PUNEET MCKINNEY Jacklyn 02/20 Released w/o Limitations [employer](P ediatri cs) [employer]) OUTPATIENT [id number] 9 MONTH WELL PUNEET MCKINNEY R 05/14 Released w/o Limitations [employer](P ediatri [facility]) [employer]([facility] OUTPATIENT [id number] ears botheri ng him x2 days FRANKIE MARTINEZ I 07/12 Released w/o Limitations [employer]([facility]) [employer]) OUTPATIENT [id number] 1YEAR WELL PUNEET MCKINNEY Jacklyn 08/11 Released w/o Limitations [employer](P ediatri cs) [employer]) OUTPATIENT [id number] COUGHTAMEKA WISEMAN 10/12 Released w/o Limitations [employer](P ediatri cs) [employer]) OUTPATIENT [id number] 15 MONTH WELL BABY CHECK GILBERTO CHOE 11/25 Released w/o Limitations [employer](P ediatri cs) [employer]([facility]) OUTPATIENT [id number] EAR ACHE, PULLING ON EAR, LOW FEVER X 1 WEEK PUNEET MCKINNEY R 07/22 Released w/o Limitations [employer](F amily Practic e) [employer]) OUTPATIENT [id number] 2YR WELL STU MCCORMICK 08/10 Released w/o Limitations [employer](P ediatri cs) [employer] [facility]Sco tt Peds [facility] [place]) TELE CONSULT [id number] 2 Notes Entered by: KRISTIN LOMAX 30 Jul 2021 1253 ------- ------- ------- ------- -- ER F/U - Jd - - (FOP-Th omas) - [phone] - corinna SIEGELRobby NAOMI 07/30 Other Not Elsewhere Classified [address] [place] [address])(S cott [facility] [place]) [address] [place] [address])([facility] tt Peds Team [place]) TELE CONSULT [id number] 4 Notes Entered by: KRISTIN LOMAX 02 Jun 2022 0941 ------- ------- ------- ------- -- Referra l req - appt decline d - Vera - ([facility] - NAOMI Zavala 06/02 Referred for Appointment [address] [place] [address] Efra [facility])(S cott Peds [facility] [place]) [address] [place] [address])([facility] tt Peds Team [place]) OUTPATIENT [id number] 3 VIRTUAL -DISCUS S REFERRA LS/NEW TO CLINIC/ SEP APPT (FOP-Th omas) CHANG YEH 06/10 Released w/o Limitations [address] [place] [address] Efra [facility])(S cott [facility]eds [facility] [place]) [address] [place] [address])(Uti lization Managemen t) TELE CONSULT [id number] 8 Notes Entered by: VISHAL TORRES 17 Jun 2022 1109 ------- ------- ------- ------- -- Referra l request for non-net work psychia trist for continu ity of care VISHAL TORRES 06/17 Other Not Elsewhere Classified [address] [place] [address] Efra [facility])(U tilizat ion Managem ent) [address] [place] [address])([employer] tt [facility] [place]) TELE CONSULT [id number] 1 Notes Entered by: TORI WILLIAMSON 06 Nov 2022 0938 ------- ------- ------- ------- -- Network results Psychol ogy/Psy chiatry 022 LSJ JULIANO, NHIEN CAMILLA 11/[address] [place] [address])(S cott [facility] [place]) [address] [place] [address])([facility]) TELE CONSULT [id number] 3 Notes Entered by: LOLITA TRAN 11 Nov 2022 1351 ------- ------- ------- ------- -- ALIVIA HILLS L REQUEST DENNIS FRANZ 11/11 Released to Self Care [address] [place] [address])([facility] Res [facility]) [address] [place] [address])([place] tt [facility]eds [facility] [place]) TELE CONSULT [id number] 6 Notes Entered by: Judah RUSSO 18 Nov 2022 0812 ------- ------- ------- ------- -- Network results Mental Health/ Psych 022, 022 KJD JULIANO, NHIEN CAMILLA 11/[address] [place] [address])(S [facility] Peds Team [place]) [address] [place] [address])([facility] Fam Res [employer] [place]) TELE CONSULT [id number] 0 Notes Entered by: KARLO HERRERA 18 Nov 2022 1043 ------- ------- ------- ------- -- Retro Psychia try Bob Kumar / [place] / GRIS CHHAYA HUA 11/18 Other Not Elsewhere Classified [address] [place] [address])(S cott [facility] Fam Res [facility]) [address] [place] [address] Efra [facility] ([facility] [place]Sco tt [facility] Fam Res [place]m [place]) TELE CONSULT [id number] 3 Notes Entered by: KARLO HERRERA 01 Jan 2023 0850 ------- ------- ------- ------- -- STAT Urology Referra l 01 January / [place] / POC CHHAYA HUA 01/01 Released to Self Care [address] [place] [address] Efra [facility]S cott [facility] [employer] Res [employer] [place]) [address] [place] [address] [facility]fra [facility] [place] [facility])(Sco tt [facility] [employer] Res [employer]) TELE CONSULT [id number] 2 Notes Entered by: Judah RUSSO 03 Mar 2023 1222 ------- ------- ------- ------- -- Network results Urology 023 HAMMAD LYONS 03/[address] [place] [address] Efra [facility]SON ([facility]S cott [facility] [employer] Res [employer]) Procedures Combined list of: [...] Admin Under Age 8, Each Additional Vaccine [id number] 08/11/20 05 PUNEET MCKINNEY Immunization Administration Under Age 8, One Vaccine Immunization Administration Under Age 8, One Vaccine [id number] 08/11/20 05 PUNEET MCKINNEY Immunization Administration Under Age 8, One Vaccine Immunization Administration Under Age 8, One Vaccine [id number] 05/14/20 05 PUNEET MCKINNEY Immunization Administration Under Age 8, One Vaccine Immunization Administration Under Age 8, One Vaccine [id number] 02/21/20 PUNEET MCKINNEY Immunization Admin Under Age 8, Each Additional Vaccine Immunization Admin Under Age 8, Each Additional Vaccine [id number] 02/21/20 05 PUNEET MCKINNEY Non-Physician Phone Call To Pt/Provider Intermed (11-20 min) Non-Physician Phone Call To Pt/Provider Intermed (11-20 min) [id number] GABRIELLENAOMI [facility] Case Management, each 15 minutes CUAUHTEMOC ROQUE DoD CASE MANAGEMENT, EACH 15 MINUTES 06/10/20 22 [facility] TELE ASSESS & MGT SRV PROV QUAL [...] SEP ADDITION CD, 1 PROC) 08/11/20 05 [facility] IMMUNIZATION ADMINISTRATION YOUNGER 8 YEARS, AGE (INCL PERCUTANEOUS, I/D, SUBCUTANEOUS,/INTR AMUSCULAR INJECTS) WHEN THE PHYSICIAN COUNSELS THE PATIENT/; 1ST INJECT (1/COMBO VACCINE/TOXOID),/D AY 05/14/20 05 DoD IMMUNIZ ADMIN YOUNGER 8 YRS, AGE (INCL PERCUTANEOUS, I/D, SUBCUTANEOUS,/IM INJECTS) WHEN THE PHYS COUNSELS THE PT/FAMILY; EA ADDITION INJECT (1/COMBO VACC/TOXOID),/DAY (LST SEP ADDITION CD, 1 PROC) 02/21/20 05 [facility] Social History Combined list of available smoking, [...] of Defense and Veterans Affairs (VA).VA Functional Iraan Measurement (FIM) Scale: 1 = Total Assistance (Subject = 0% +), 2 = Maximal Assistance (Subject = 25% +), 3 = Moderate Assistance (Subject = 50% +), 4 = Minimal Assistance (Subject = 75% +), 5 = Supervision, 6 = Modified Iraan (Device), 7 = Complete Iraan (Timely, Safely). Assessment Date/Time Source Assessment Type Assessment Skill Assessment Score Assessment Details No data available for this section
[2025-02-12] MEDS: IBUPROFEN 400 MG TABLET 800 MG PO (22:01)
[2025-02-12] MEDS: TETANUS,DIPHTHERIA,AC PERTUSSIS ADULT (0.5 ML) BOOSTRIX IM (22:02)
[2025-02-12] MEDS: ACETAMINOPHEN 500 MG TABLET 1000 MG PO (22:02)
--- NOTE | 2025-02-12 22:51 | ED.GENADULT ---
HPI - General Adult General Chief complaint: Wound/Laceration Stated complaint: finger laceration Time Seen by Provider: 02/12/25 21:32 History of Present Illness HPI narrative: This is a 19-year-old male presenting with a finger laceration. Patient was cutting onions with a sharp knife when he cut the tip of his left index finger. Nail bed was involved. No other injuries. Related Data Home Medications Medication Instructions Recorded Confirmed Last Taken Type clonidine HCl 0.2 mg tablet 0.2 mg PO HS 07/20/22 12/23/22 Unknown History sertraline 50 mg tablet 50 mg PO DAILY 07/20/22 12/23/22 Unknown History methylphenidate HCl 10 mg tablet 10 mg PO DAILY 10/20/22 12/23/22 Unknown History methylphenidate HCl 54 mg 54 mg PO DAILY 10/20/22 12/23/22 Unknown History tablet,extended release 24 hr Allergies Allergy/AdvReac Type Severity Reaction Status Date / Time No Known Allergies Allergy Verified 02/12/25 21:18 [facility] Past Medical History Medical History History of laceration of skin RT leg ADHD Surgical History Surgical History History of lymph node excision x2 Family History Family History Mother Family history non-contributory Social History Social History Smoking status: Never smoker Substance use: never Living arrangements: with family Occupation/Education: student Gender identity (if verbalized by the patient): Male Spiritual care concerns: No Exam Narrative: APPEARANCE: No apparent distress. Head: atraumatic. EYES: EOMI, NOSE: Atraumatic NECK: Trachea midline RESPIRATORY: No increased rate of breathing CARDIOVASCULAR: RRR, ABDOMINAL: Non-distended MUSCULOSKELETAl: No obvious deformities NEURO: Alert. Moving 4/4 extremities SKIN:: 2 cm laceration left index finger involving the nail bed PSYCHIATRIC: Normal affect Course Vital Signs Vital signs: Vital Signs Temperature 99.1 F 02/12/25 21:25 Pulse Rate 97 02/12/25 21:25 Respiratory Rate 18 02/12/25 21:25 Blood Pressure 134/91 H 02/12/25 21:25 Pulse Oximetry 97 02/12/25 21:25 Temperature 99.1 F 02/12/25 21:25 Pulse Rate 97 02/12/25 21:25 Respiratory Rate 18 02/12/25 21:25 Blood Pressure 134/91 H 02/12/25 21:25 Pulse Oximetry 97 02/12/25 21:25 Procedures Laceration Laceration 1: Date: 02/12/25 Site: hand Side (If applicable): left Size (cm): 2 Description: linear Depth: simple, single layer Local Anesthetic: bupivacaine 0.25% Amount of anesthesia used (mL): 6 Pre-repair: wound explored, irrigated extensively, minor debridement, deep structures intact and wound margins revised ====== Skin Level ====== Skin layer closed with: nylon Size (cm): 4-0 Number of sutures: 5 Technique: simple, interrupted ====== Subcutaneous Layer ====== ====== Muscle Layer ====== ====== Tendon Layer ====== Medical Decision Making MDM Narrative Medical decision making narrative: -Course: 19-year-old male presenting with a finger laceration involving the nail bed. Discussed options including removal of the entire nail with repair of the nail bed versus repair of the suture with debridement of the pain nail edge. Discussed risks and benefits including nail deformity. Patient opted to not have the finger nail completely removed would just like the wound repaired. Laceration was repaired. Patient given a tetanus shot. Suture removal in 10 days. Given return precautions for infection. Vital Signs Vital Signs: Vital Signs Temperature 99.1 F 02/12/25 21:25 Pulse Rate 97 02/12/25 21:25 Respiratory Rate 18 02/12/25 21:25 Blood Pressure 134/91 H 02/12/25 21:25 Pulse Oximetry 97 02/12/25 21:25 Temperature 99.1 F 02/12/25 21:25 Pulse Rate 97 02/12/25 21:25 Respiratory Rate 18 02/12/25 21:25 Blood Pressure 134/91 H 02/12/25 21:25 Pulse Oximetry 97 02/12/25 21:25 Discharge Plan Discharge Clinical Impression: Finger laceration Patient Disposition: Home Condition: Stable Instructions: Antibiotic Form, Care For Your Stitches (ED) Additional Instructions: You were seen in the ED for a finger laceration. Please keep the wound clean and dry. You can use bacitracin as needed please let the blood brief for 1 hour day. Follow-up with your primary care physician for suture removal in 10-14 days. If you develop signs of infection such as increased or swelling please return to the ED for re-evaluation. Patient Language: Guatemalan Prescriptions: No Action clonidine HCl 0.2 mg tablet 0.2 mg PO HS sertraline 50 mg tablet 50 mg PO DAILY methylphenidate HCl 10 mg tablet 10 mg PO DAILY methylphenidate HCl 54 mg tablet extended release 24hr 54 mg PO DAILY naproxen 500 mg tablet 500 mg PO BID Qty: 14 0RF hydrocodone-acetaminophen 5-325 mg tablet 1 tablet PO Q6H PRN (Reason: pain) Qty: 12 0RF naproxen 375 mg tablet 375 mg PO BID Qty: 14 0RF Follow-up/Referrals: UNKNOWN,DOCTOR [Primary Care Provider] -
[2025-02-12 22:56] VITALS: BP 133/74; PULSE 70; RESP 18; TEMP 36.8; O2SAT 98
== END 2025-02-12 23:54 | disposition home or self-care (01) ==
PROVIDERS: Emergency Provider Emergency Medicine
DX: S61.211A Laceration without foreign body of left index finger without damage to nail, initial encounter (principal); Z23 Encounter for immunization; F90.9 Attention-deficit hyperactivity disorder, unspecified type; Z79.899 Other long term (current) drug therapy; W26.0XXA Contact with knife, initial encounter; Y93.G1 Activity, food preparation and clean up
CPT/HCPCS: 12001; 29130; 73120; 90471; 90715; 99282; 99283; A9270